=== PATIENT | male | born 1980 | race Caucasian/White ===

== ENCOUNTER 2018-03-25 09:41 | Inpatient (IN) | payer MEDICAID ==
[2018-03-25] MEDS: ASPIRIN 325 MG TAB PO (10:06)
[2018-03-25 10:12] LABS: ADD MAN DIFF? NO
[2018-03-25 10:17] LABS: BASOPHIL # 0.1 10^3/ul (0.0-0.1); BASOPHILS % 1.3 % (0.0-2.0); EOSINOPHILS # 0.3 10^3/ul (0.0-0.5); EOSINOPHILS % 6.3 % (0.0-7.0); HEMATOCRIT 42.7 % (42.0-52.0); HEMOGLOBIN 14.6 g/dl (14.0-18.0); LYMPHOCYTES # 2.1 10^3/ul (0.8-2.9); LYMPHOCYTES % 39.8 % (15.0-51.0); MEAN CORPUSCULAR HEMOGLOBIN 30.4 pg (29.0-33.0); MEAN CORPUSCULAR HGB CONC 34.2 g/dl (32.0-37.0); MEAN PLATELET VOLUME 11.8 fl (7.4-10.4); MONOCYTE # 0.4 10^3/ul (0.3-0.9); MONOCYTES % 8.2 % (0.0-11.0); NEUTROPHIL # 2.3 10^3/ul (1.6-7.5); PLATELET COUNT 180 10^3/UL (140-415); RED CELL DISTRIBUTION WIDTH 13.2 % (11.5-14.5)
[2018-03-25 10:17] LABS: WHITE BLOOD COUNT 5.3 10^3/ul (4.8-10.8)
[2018-03-25] MEDS ORDERED: IODIXANOL LOCM 100 ML BTL (10:25)
[2018-03-25] MEDS ORDERED: MIDAZOLAM 1 MG/ML 2 ML INJ (10:25)
[2018-03-25] MEDS ORDERED: FENTAnyl 50 MCG/ML VIAL (10:25)
[2018-03-25] MEDS ORDERED: LIDOCAINE 1% (MDV) 10 ML INJ ×2 (10:25→10:52)
[2018-03-25] MEDS ORDERED: NITROGLYCERIN (IC) 100 MCG/ML INJ (10:26)
[2018-03-25] MEDS ORDERED: HEPARIN 1000 UNITS/ML 10 ML INJ (10:26)
[2018-03-25] MEDS ORDERED: VERAPAMIL 5 MG INJ (10:26)
[2018-03-25 10:42] LABS: INR 0.86; PROTIME 11.8 Sec (11.9-14.9); PT RATIO 0.9
[2018-03-25 10:43] LABS: PARTIAL THROMBOPLASTIN TIME 29.3 Sec (25.0-35.0)
[2018-03-25 10:55] LABS: ALANINE AMINOTRANSFERASE 53 IU/L (13-69); ALBUMIN 4.5 g/dl (3.3-4.9); ALBUMIN/GLOBULIN RATIO 1.32; ALKALINE PHOSPHATASE 49 IU/L (42-121); ANION GAP 14 (8-16); ASPARTATE AMINO TRANSFERASE 44 IU/L (15-46); BILIRUBIN,INDIRECT 0.8 mg/dl (0-1.1); BILIRUBIN,TOTAL 0.8 mg/dl (0.2-1.3); BLOOD UREA NITROGEN 15 mg/dl (7-20); CALCIUM 10.1 mg/dl (8.4-10.2); CARBON DIOXIDE 26 mmol/L (21-31); CHLORIDE 108 mmol/L (97-110); CREATINE KINASE 423 IU/L (23-200); CREATININE 0.87 mg/dl (0.61-1.24); GLUCOSE 121 mg/dl (70-220); POTASSIUM 4.4 mmol/L (3.5-5.1); SODIUM 144 mmol/L (135-144); TOTAL PROTEIN 7.9 g/dl (6.1-8.1)
[2018-03-25 11:07] LABS: B-TYPE NATRIURETIC PEPTIDE 19 PG/ML (0-125); CK INDEX 1.3; CK-MB 5.67 ng/ml (0.0-2.4); TROPONIN-I < 0.010 ng/ml (0.000-0.120)
[2018-03-25] MEDS: HOLD all METFORMIN and METFORMIN CONTAINING medications for 48 hours post procedure. Chec XX (13:00)
[2018-03-25] MEDS ORDERED: INDOMETHACIN 50 MG PO (13:00)
[2018-03-25] MEDS: SOD CHLORIDE 0.9% 1,000 ML IV (13:00)
[2018-03-25] MEDS: COLCHICINE 0.6 MG TAB PO ×2 (14:39→21:24)
[2018-03-25] MEDS: INDOMETHACIN 50 MG PO (21:24)
[2018-03-25] MEDS: ACETAMINOPHEN 325 MG TAB PO (21:43)
[2018-03-25 21:49] LABS: ADD MAN DIFF? NO
[2018-03-25 21:52] LABS: WHITE BLOOD COUNT 7.5 10^3/ul (4.8-10.8)
[2018-03-25 21:52] LABS: BASOPHIL # 0.1 10^3/ul (0.0-0.1); BASOPHILS % 0.7 % (0.0-2.0); EOSINOPHILS # 0.2 10^3/ul (0.0-0.5); EOSINOPHILS % 3.2 % (0.0-7.0); HEMATOCRIT 40.9 % (42.0-52.0); HEMOGLOBIN 14.5 g/dl (14.0-18.0); LYMPHOCYTES # 2.4 10^3/ul (0.8-2.9); MEAN CORPUSCULAR HEMOGLOBIN 31.3 pg (29.0-33.0); MEAN CORPUSCULAR HGB CONC 35.5 g/dl (32.0-37.0); MEAN CORPUSCULAR VOLUME 88.3 fl (82.0-101.0); MEAN PLATELET VOLUME 11.7 fl (7.4-10.4); MONOCYTE # 0.6 10^3/ul (0.3-0.9); NEUTROPHIL # 4.2 10^3/ul (1.6-7.5); NEUTROPHILS % 55.7 % (39.0-77.0); PLATELET COUNT 182 10^3/UL (140-415); RED BLOOD COUNT 4.63 10^6/ul (4.70-6.10)
[2018-03-26] MEDS ORDERED: HYDROCODONE/APAP (5/325) TAB PO
[2018-03-26] MEDS: INDOMETHACIN 50 MG PO ×2 (08:29→13:11)
[2018-03-26] MEDS: COLCHICINE 0.6 MG TAB PO (08:29)
[2018-03-26 09:31] LABS: ANION GAP 12 (8-16); BLOOD UREA NITROGEN 15 mg/dl (7-20); CALCIUM 9.7 mg/dl (8.4-10.2); CARBON DIOXIDE 24 mmol/L (21-31); CHLORIDE 109 mmol/L (97-110); CREATININE 0.85 mg/dl (0.61-1.24); GLUCOSE 104 mg/dl (70-220); POTASSIUM 4.1 mmol/L (3.5-5.1); SODIUM 141 mmol/L (135-144)
[2018-03-26 09:37] LABS: CREATINE KINASE 146 IU/L (23-200)
[2018-03-26 09:38] LABS: TROPONIN-I < 0.010 ng/ml (0.000-0.120)
[2018-03-26 11:13] LABS: CHOLESTEROL 239 mg/dl (100-200)
[2018-03-26 11:13] LABS: CHOL/HDL RATIO 7.2 RATIO; HDL CHOLESTEROL 33 mg/dl (27-67)
[2018-03-26 11:25] LABS: LDL CHOLESTEROL,CALCULATED 26 mg/dl; TRIGLYCERIDES 899 mg/dl (0-149)
[2018-03-26 12:15] LABS: HEMOGLOBIN A1C 5.5 % (0-5.9)
== END 2018-03-26 13:15 | disposition home or self-care (01) | DRG 287 ==
LOC: E/R 09:41 → CCL 09:55 → SDS 09:55 → CCL 10:57 → REC 10:57 → TEL 12:50
PROC: B2111ZZ Fluoroscopy of Multiple Coronary Arteries using Low Osmolar Contrast (ICD-10-PCS; principal; 2018-03-25 10:15)
PROC: 4A023N7 Measurement of Cardiac Sampling and Pressure, Left Heart, Percutaneous Approach (ICD-10-PCS; 2018-03-25 10:15)
DX: I30.9 Acute pericarditis, unspecified (principal); R94.31 Abnormal electrocardiogram [ECG] [EKG]; J02.9 Acute pharyngitis, unspecified; E78.5 Hyperlipidemia, unspecified; E78.00 Pure hypercholesterolemia, unspecified
CPT/HCPCS: 71045; 80048; 80053; 80061; 82550; 82553; 83036; 83880; 84484; 85025; 85610; 85730; 93005; 93306; 93458; 99285-25